=== PATIENT | male | born 2000 | race Hispanic/Latino ===

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

== ENCOUNTER 2019-03-16 14:45 | Emergency (ER) | payer SELFPAY | END 2019-03-16 15:54 | disposition home or self-care (01) | LOC: EDH 14:45 | DX: K08.89 Other specified disorders of teeth and supporting structures (principal); J45.909 Unspecified asthma, uncomplicated; Z72.0 Tobacco use | CPT/HCPCS: 99281 ==

== ENCOUNTER 2020-06-27 01:12 | Emergency (ER) | payer SELFPAY | END 2020-06-27 01:56 | disposition home or self-care (01) | LOC: EDH 01:12 | DX: Z02.83 Encounter for blood-alcohol and blood-drug test (principal) | CPT/HCPCS: 36415 ==

== ENCOUNTER 2025-04-21 13:48 | Emergency (ER) | payer SELFPAY ==
[~2025-04-21] VITALS: Ht 177.8 cm; Wt 56.7 kg
[2025-04-21 13:50] VITALS: BP 119/76; PULSE 88; RESP 18; TEMP 98.8
[2025-04-21] MEDS ORDERED: IBUP-2077 PO (14:01)
[2025-04-21] MEDS ORDERED: CLIN-141 PO (14:01)
--- NOTE | 2025-04-21 14:02 | ERN ---
ED Note History of Present Illness Stated Complaint: TOOTH PAIN Chief Complaint: Tooth Ache/Pain Time Seen by MD: 13:50 Dictation: PATIENT IS A 25-YEAR-OLD WHO IS COMPLAINING OF LEFT UPPER QUADRANT MOLAR PAIN WITH GINGIVAL SWELLING FOR THE LAST 2-3 DAYS. NO FEVER NO CHILLS NO NAUSEA VOMITING. STATES HE HAS NO PRIMARY CARE DOCTOR AND NO DENTIST. Allergies: Coded Allergies: No Known Drug Allergies (Unverified Allergy, Unknown, 10/05/18) Past Medical History Past Medical History: No Pertinent History Surgical History: None RN Note Reviewed/Agreed w/PFSH: Yes Review of System Dictation CONSTITUTIONAL: NEGATIVE EXCEPT FOR HPI HEAD/FACE: NEGATIVE EXCEPT FOR HPI EENT: NEGATIVE EXCEPT FOR HPI DENTAL PAIN WITH DECAY RESPIRATORY: NEGATIVE EXCEPT FOR HPI GASTROINTESTINAL/ABDOMINAL: NEGATIVE EXCEPT FOR HPI GENITOURINARY: NEGATIVE EXCEPT FOR HPI MUSCULOSKELETAL: NEGATIVE EXCEPT FOR HPI INTEGUMENTARY: NEGATIVE EXCEPT FOR HPI NEUROLOGICAL/PSYCH: NEGATIVE EXCEPT FOR HPI HEMATOLOGIC/LYMPHATIC: NEGATIVE EXCEPT FOR HPI ALL SYSTEMS NEGATIVE, EXCEPT NOTED ABOVE. 13 POINT REVIEW OF SYSTEMS ASSESSED AND ALL NEGATIVE EXCEPT FOR ABOVE. Initial Vital Sign VS Vital Signs Date Time Temp Pulse Resp B/P (MAP) Pulse Ox O2 Delivery O2 Flow Rate FiO2 04/21/25 13:50 98.8 88 18 119/76 97 Physical Exam Dictation VITAL SIGNS REVIEWED MILD ACUTE DISTRESS, WELL DEVELOPED, NOURISHED. HEAD AND FACE: NON-TRAUMATIC. EYES: PERRL, PINK CONJUNCTIVAS, EYELID NO TRAUMA, ANTERIOR CHAMBER WITH ARCUS SENILIS. EARS: PINNAS INTACT AND NO SIGNS OF TRAUMA OR ERYTHEMA EAR CANALS CLEAR AND NO DISCHARGE TM NO ERYTHEMA NOSE: NO DISCHARGE, NO BLEEDING. OROPHARYNX: MOUTH NORMAL, DECAY WITH GINGIVAL SWELLING TO TOOTH 14. PHARYNX CLEAR,NO ERYTHEMA, TONSILS NO EXUDATES, NO ABSCESSES NOTED, MUCOUS MEMBRANE MOIST NECK: SUPPLE, NON-TENDER, NO THYROMEGALY, NO MASSES, NO JVD, NO BRUITS BREAST:DEFERRED CHEST:NO TENDERNESS, NO CREPITUS, NO PARADOXICAL MOVEMENT, NO RETRACTIONS LUNGS:CLEAR, WELL-VENTILATED, SYMMETRIC, NO RALES, NO WHEEZING, NO RHONCHI, NO STRIDOR, GOOD BREATH SOUNDS BILATERALLY HEART: REGULAR RATE, REGULAR RHYTHM, NO MURMUR, NO GALLOPS VASCULAR: NO PERIPHERAL EDEMA, ABDOMEN: SOFT, POSITIVE BOWEL SOUNDS, NONDISTENDED, NO GUARDING, NONTENDER, NO REBOUND, NO MASSES NO HEPATOMEGALY, NO SPLENOMEGALY, NO MESSER'S SIGN, NO HERNIAS. RECTAL: DEFERRED GENITAL: DEFERRED NEUROLOGICAL: NORMAL SPEECH, MOTOR FUNCTION INTACT, SENSORY FUNCTION INTACT MUSCULOSKELETAL: NECK NONTENDER, FULL RANGE OF MOTION, BACK NONTENDER, FULL RANGE OF MOTION, EXTREMITIES: NONTENDER, FULL RANGE OF MOTION SKIN: COLOR PINK, DRY, NO TURGOR, NO RASH, NO LACERATIONS, NO ABRASIONS, NO CONTUSIONS. LYMPHATIC: DEFERRED Results (Laboratory/Radiology) Labs Reviewed?: Yes ED Course ED Course Orders Procedure Category Date Status Time Ibuprofen 800 Mg Tab PHA 04/21/25 Transmitted (Motrin) 14:00 Current Medications Medications (Trade) Dose Ordered Sig/Shannan Route PRN Reason Start Time Stop Time Status Last Admin Dose Admin Ibuprofen (moTRIN) 800 mg ONCE ONCE PO 04/21/25 14:00 04/21/25 14:01 UNV Vital Signs Date Time Temp Pulse Resp B/P (MAP) Pulse Ox O2 Delivery O2 Flow Rate FiO2 04/21/25 13:50 98.8 88 18 119/76 97 1400/PATIENT WAS MADE AWARE WE HAVE NO DENTAL SERVICES IN THE EMERGENCY ROOM. HE WILL BE TREATED EMPIRICALLY FOR PAIN AND BE GIVEN CLINDAMYCIN FOR DENTAL INFECTION REFERRED TO THE TELEPHONE BOOK OR [facility]LLOW [facility] FOR REFERRAL TO A DENTIST IN THE COMMUNITY WITH A AN AFTER HOURS EMERGENCY NUMBER Medical Decision Making MDM MEDICAL DISCHARGE MAKING BASED ON HPI AND PHYSICAL EXAM. NO LABS OR IMAGING INDICATED. WE WILL TREAT PATIENT FOR DENTAL PAIN WITH MOTRIN WE WILL PROVIDE CLINDAMYCIN 300 Q.6 HOURS FOR 10 DAYS AND IBUPROFEN PATIENT TOLD SEE HIS SMART PHONE OR GO TO THE YELLOW [employer] FOR A DENTIST WITH A AN AFTER HOURS EMERGENCY NUMBER AND FOLLOW UP DX & DISP Disposition: Discharge Departure Impression: Primary Impression: Dental caries extending into pulp Additional Impression: Dentalgia Condition: Stable Scripts Ibuprofen (Ibuprofen 800 mg Tab) 800 Mg Tab 800 MG PO Q8H PRN for fever or pain, #30 TAB 0 Refills Prov: GWEN RICHARDS 04/21/25 Clindamycin HCl (Clindamycin HCl) 300 Mg Capsule 1 CAP PO QID for 10 Days, #40 CAP 0 Refills Prov: GWEN RICHARDSP 04/21/25 Additional Instructions: FOLLOW-UP WITH PRIMARY CARE PROVIDER IN 1 TO 2 DAYS. TAKE MEDICATIONS DIRECTED HERE IN THE EMERGENCY ROOM. OKAY TO CONTINUE HOME MEDICATIONS UNLESS OTHERWISE DISCUSSED DURING YOUR VISIT IN THE EMERGENCY ROOM TODAY. RETURN TO YOUR NEAREST EMERGENCY ROOM IF SYMPTOMS WORSEN OR IF THERE IS NO IMPROVEMENT. CALL 911 IF YOU NEED IMMEDIATE ASSISTANCE. TAKE TYLENOL OR MOTRIN [id number] NEEDED AND IF NO CONTRAINDICATIONS ARE PRESENT. INCREASE ORAL HYDRATION. A WOUND CULTURE OR URINE CULTURE WAS ORDERED HERE IN THE EMERGENCY ROOM DEPARTMENT PLEASE FOLLOW-UP WITH PRIMARY CARE PROVIDER AND ADVISE THEM TO GET REPEAT PORTS FROM OUR FACILITY. IF YOU HAD ANY MARIA ELENA WRAP/SPLINTS THAT WERE APPLIED HERE, PLEASE DO NOT REMOVE THEM UNTIL YOU SEE YOUR PRIMARY CARE OR SPECIALTY. TAKE CLINDAMYCIN DIRECTED UNTIL GONE. TAKE TWO CAPSULES FOR 1ST DOSE THEN EVERY 6 HOURS DIRECTED UNTIL GONE. FOLLOW UP IN THE [facility] OR THE TELEPHONE BOOK FOR A LOCAL DENTIST WITH A AN AFTER HOURS EMERGENCY NUMBER AND FOLLOW UP. Referrals: VICTOR MANUEL WILSON (PCP) Time of Disposition: 14:01 I have reviewed the case, and I agree with, Diagnosis and Plan GWEN RICHARDSP Apr 21, 2025 14:02
== END 2025-04-21 14:16 | disposition home or self-care (01) ==
LOC: EDH 13:48
DX: K02.9 Dental caries, unspecified (principal)
CPT/HCPCS: 99283